=== PATIENT | male | born 1995 | race Caucasian/White ===

== ENCOUNTER 2020-06-28 04:08 | Emergency (ER) | payer MEDICAID ==
[2020-06-28 04:16] VITALS: Ht 165.1 cm
[2020-06-28 05:13] LABS: CALCIUM 8.6 mg/dL (8.5-10.1); CARBON DIOXIDE 26.4 mmol/L (21-32); CHLORIDE SERUM 99 mmol/L (98-107); CREATININE SERUM 1.2 mg/dL (0.7-1.3); GFR1 > 60 mL/min; GLUCOSE SERUM 129 mg/dL (74-106); POTASSIUM SERUM 3.2 mmol/L (3.5-5.1); SODIUM SERUM 141 mmol/L (136-145)
[2020-06-28 05:19] LABS: ALBUMIN 3.4 g/dL (3.4-5.0); ALKALINE PHOSPHATASE 139 U/L (46-116); ALT/SGPT 81 U/L (16-63); AST/SGOT 215 U/L (15-37); BILIRUBIN TOTAL 0.9 mg/dL (0.20-1.00); MAGNESIUM 1.5 mg/dL (1.8-2.4); PLATELET COUNT 421 x10^3mcL (130-400); RED CELL DISTRIBUTION WIDTH 16.8 % (11.5-14.5); TOTAL PROTEIN, SERUM 7.2 g/dL (6.4-8.2)
[2020-06-28 08:13] VITALS: BP 145/100
== END 2020-06-28 08:49 | disposition home or self-care (01) ==
LOC: ED 04:08
PROVIDERS: Emergency Medicine
DX: F10.129 Alcohol abuse with intoxication, unspecified (principal); E83.42 Hypomagnesemia; Y90.8 Blood alcohol level of 240 mg/100 ml or more
CPT/HCPCS: G0480; J2060; J2405; J3411; J3475; J3490; J7030